=== PATIENT | female | born 1955 | race African-American/Black ===

== ENCOUNTER 2020-01-01 10:43 | Emergency (ER) | payer MEDICARE, OTHER ==
[~2020-01-01] VITALS: Ht 170.2 cm; Wt 92.4 kg
[2020-01-01 10:53] VITALS: BP 129/59
[2020-01-01] MEDS ORDERED: CYCLOBENZAPRINE 10 MG TABLET. PO ONE (11:15)
[2020-01-01] MEDS ORDERED: KETOROLAC 60 MG/2 ML VIAL. IM ONE (11:15)
--- NOTE | 2020-01-01 11:26 | PHYS DOC ---
Past Medical History Past Medical History: High Cholesterol, Hypertension (KELSEY RUIZ APRN) Past Surgical History: Other Additional Past Surgical Histo: BUNIONECTOMY,CYST/FINGER (KELSEY RUIZ APRN) Smoking Status: Current Every Day Smoker Additional Information: 0.25 PPD Alcohol Use: None (NORMANSHERRIESkylerKELSEY PICKERING) General Adult EDM: Chief Complaint: BACK PAIN - NO INJURY HPI: HPI: Patient is a 64 year old female who presents with low back pain since this past Wednesday after lifting heavy objects at work. Patient rates pain 10/10 pain on a 1-10 pain scale. Patient associates this pain with an old injury she suffered in 2005 from lifting a family member that requires total care at home. Patient states she has never had any imaging done of her back with this pain reporting she only takes [id number] pain medicine, stating this is her first time seeking care at an emergency department for this pain. 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 Patient denies any urinary tract infection signs and symptoms, patient denies any vaginal discharge, patient denies any STI concerns. Patient denies any fever, chills, changes in her vision, nasal congestion, cough or shortness of breath. Patient denies any chest pains, swelling of her extremities, abdominal pains, nausea, vomiting, diarrhea, or constipation. Patient denies any skin rashes, headaches, focal weaknesses, sensory changes, swelling of her glands, depressions or anxieties. Patient denies any homicidal or suicidal ideations. Patient denies any radiation of her back pain, patient states she took two 600 mg ibuprofens yesterday without relief of her pain. Patient describes her pain as a constant ache. Patient states her pain is on the left and right side of her lumbar spine area, denies midline spinal tenderness. (JOSEPHKELSEY PICKERING) Review of Systems: Review of Systems: Constitutional: Denies fever or chills. Eyes: Denies change in visual acuity. HENT: Denies nasal congestion or sore throat. Respiratory: Denies cough or shortness of breath. Cardiovascular: Denies chest pain or edema. GI: Denies abdominal pain, nausea, vomiting, constipation or diarrhea. : Denies dysuria. Denies vaginal discharge, denies STI concerns. Musculoskeletal: Complains of lower left and right sided back pains without radiation down lower extremities. Denies pains in other joints of her body. Integument: Denies rash. Neurologic: Denies headache, focal weakness or sensory changes. Endocrine: Denies polyuria or polydipsia. Lymphatic: Denies swollen glands. Psychiatric: Denies depression or anxiety. Denies HI/SI (KELSEY RUIZ APRN) Heart Score: Risk Factors: Risk Factors: DM, Current or recent (<one month) smoker, HTN, HLP, family history of CAD, obesity. Risk Scores: Score 0 - 3: 2.5% MACE over next 6 weeks - Discharge Home Score 4 - 6: 20.3% MACE over next 6 weeks - Admit for Clinical Observation Score 7 - 10: 72.7% MACE over next 6 weeks - Early Invasive Strategies (KELSEY RUIZ APRN) Family History: Family History: Patient denies any family history significant for this ER visit today. (KELSEY RUIZ APRN) Current Medications: Patient denies any current medications at home. (KELSEY RUIZ APRN) Allergies: Allergies: Allergies Coded Allergies Type Severity Reaction Last Updated Verified No Known Drug Allergies 01/01/20 No (KELSEY RUIZ APRN) Physical Exam: PE: Constitutional: Well developed, well nourished, no acute distress, non-toxic appearance. Patient is complaint of pain is significantly higher than physical presentation. HENT: Normocephalic, atraumatic, bilateral external ears normal, oropharynx moist, no oral exudates, nose normal. Eyes: PERRLA, EOMI, conjunctiva normal, no discharge. Neck: Normal range of motion, no tenderness, supple, no stridor. Cardiovascular:Heart rate regular rhythm, no murmur, heart sounds S1-S2 dilatation. Lungs & Thorax: Bilateral breath sounds clear to auscultation all lung alexander. Abdomen: Bowel sounds normal all 4 quadrants, soft, no tenderness, no masses, no pulsatile masses. Skin: Warm, dry, no erythema, no rash. Back: Tenderness to palpation left and right lumbar area, no mid line spinal tenderness, no radiation of pain, no deformity, no crepitus to palpation, no CVA tenderness. Extremities: No tenderness, no cyanosis, no clubbing, ROM intact, no edema. Neurologic: Alert and oriented X 3, normal motor function, normal sensory function, no focal deficits noted. Psychologic: Affect normal, judgement normal, mood normal. (KELSEY RUIZ APRN) Current Patient Data: Vital Signs: Vital Signs Date Time Temp Pulse Resp B/P (MAP) Pulse Ox O2 Delivery O2 Flow Rate FiO2 01/01/20 10:53 97.6 81 17 129/59 (82) 100 Room Air 97.6 (KELSEY RUIZ APRN) EKG: EKG: [] (KELSEY RUIZ APRN) Radiology/Procedures: Radiology/Procedures: PATIENT: CARLOS LAUGHLIN ACCOUNT: [id number] : 1955 LOCATION: ER AGE: 64 SEX: F EXAM STATUS: REG ER ORD. PHYSICIAN: KELSEY RUIZ APRN REASON: LOW BACK PAIN PROCEDURE: CT LUMBAR SPINE WO CONTRAST CT lumbar spine without contrast HISTORY: Low back pain. FINDINGS: Lumbar vertebral body height and alignment intact. No fracture. No spondylolysis defect. No pathologic lytic or sclerotic bone lesion evident. Aortoiliac calcified plaque. Paraspinal tissues unremarkable. Disc disease described below. L1-L2: Facet hypertrophy and spurring. Spinal canal and neural foramina grossly patent. L2-L3: Mild disc bulge. Facet hypertrophy and spurring. There may be mild neural foraminal stenoses. Spinal canal grossly patent. L3-L4: Mild disc bulge. Facet hypertrophy and spurring. Mild-moderate neural foraminal stenoses. Spinal canal grossly patent. L4-L5: Moderate disc bulge, bulky lateral disc osteophyte, facet hypertrophy and spurring. Mild left neural foraminal stenosis. Severe right neural foraminal stenosis or could be impingement of the exiting right L4 nerve. There is mild-moderate spinal canal stenosis. L5-S1: Moderate disc bulge, bulky lateral disc osteophyte, facet hypertrophy and spurring. Mild-moderate right neural foraminal stenosis. Mild left neural foraminal stenosis. There is probable mild spinal canal stenosis. IMPRESSION: No acute osseous injury lumbar spine. Lumbar disc disease and facet arthritis the spinal canal and neural foraminal stenoses most notable at L4-L5 and L5-S1 as described above. Exposure: One or more of the following individualized dose reduction techniques were utilized for this examination: 1. Automated exposure control 2. Adjustment of the mA and/or kV according to patient size 3. Use of iterative reconstruction technique Electronically signed by: Cory Romo MD (01/01/2020 11:50 AM) [id number] DICTATED and SIGNED BY: CORY ROMO MD DATE: 01/01/20 1150 (KELSEY RUIZ APRN) Course & Med Decision Making: Course & Med Decision Making Pertinent Labs and Imaging studies reviewed. (See chart for details) 64-year-old female patient vital signs stable presented to the emergency room with complaints of low back pain has been off and on since 2005, patient states she has never had any imaging nor ER visits related to her back pain. Patient states she does have a primary care physician that she sees regularly. A urinalysis was performed and negative, her urine is not infected. A CAT scan of her L-spine was performed concerning for disc disease. Patient was given 60 mg Toradol IM and 10 mg Flexeril p.o. for her 10/10 pain, which brought her pain down to a 2/10 on a 1-10 pain scale upon reexamination. Patient has no radiation of pain no signs or symptoms of saddle anesthesia, this is most likely pain related to her disc disease. Discussed CT findings with patient and need to follow-up with her primary care physician with possible referral to orthopedic specialty. Discussed with patient discharge instructions and home care, will write prescriptions for 600 mg ibuprofen, and 10 mg Flexeril. Patient is to follow-up with her primary care physician, patient denied need for a work excuse. Patient gave verbal understanding of home care instructions, follow-up instructions, return to ER concerns. Patient denies any further questions or concerns. Patient discharged to home without incident. (KELSEY RUIZ APRN) Course & Med Decision Making I have reviewed the PA/SENIOR CONSULTING MANAGER's note and Plan of Care. I was available for consultation as needed during the patient's visit in the emergency department. I agree with the clinical impression, plans and disposition. (ANDIE INMAN MD) Junaid Disclaimer: Junaid Disclaimer: This electronic medical record was generated, in whole or in part, using a voice recognition dictation system. (KELSEY RUIZ APRN) Departure Departure Impression: Primary Impression: Low back pain Qualified Codes: M54.5 - Low back pain; G89.29 - Other chronic pain Additional Impression: Lumbar strain Qualified Codes: S39.012A - Strain of muscle, fascia and tendon of lower back, initial encounter Disposition: 01 DC HOME SELF CARE/HOMELESS Condition: GOOD Referrals: JAMES BATES MD (PCP) Patient Instructions: Back Pain, Adult Additional Instructions: Take prescribed medications as directed, follow-up with your primary doctor soon related to your CAT scan for possible referral to soil specialist, return to the emergency department for worsening symptoms. Scripts Ibuprofen (IBUPROFEN) 600 Mg Tablet 600 MG PO PRN Q6HRS PRN for INFLAMMATION, #20 TAB Prov: KELSEY RUIZ APRN 01/01/20 Cyclobenzaprine Hcl (CYCLOBENZAPRINE HCL) 10 Mg Tablet 10 MG PO TID, #12 TAB 0 Refills Prov: KELSEY RUIZ APRN 01/01/20 KELSEY RUIZ APRN Jan 01, 2020 11:26 ANDIE INMAN MD Jan 01, 2020 14:23
--- NOTE | 2020-01-01 11:53 | RAD ---
CT lumbar spine without contrast HISTORY: Low back pain. FINDINGS: Lumbar vertebral body height and alignment intact. No fracture. No spondylolysis defect. No pathologic lytic or sclerotic bone lesion evident. Aortoiliac calcified plaque. Paraspinal tissues unremarkable. Disc disease described below. L1-L2: Facet hypertrophy and spurring. Spinal canal and neural foramina grossly patent. L2-L3: Mild disc bulge. Facet hypertrophy and spurring. There may be mild neural foraminal stenoses. Spinal canal grossly patent. L3-L4: Mild disc bulge. Facet hypertrophy and spurring. Mild-moderate neural foraminal stenoses. Spinal canal grossly patent. L4-L5: Moderate disc bulge, bulky lateral disc osteophyte, facet hypertrophy and spurring. Mild left neural foraminal stenosis. Severe right neural foraminal stenosis or could be impingement of the exiting right L4 nerve. There is mild-moderate spinal canal stenosis. L5-S1: Moderate disc bulge, bulky lateral disc osteophyte, facet hypertrophy and spurring. Mild-moderate right neural foraminal stenosis. Mild left neural foraminal stenosis. There is probable mild spinal canal stenosis. IMPRESSION: No acute osseous injury lumbar spine. Lumbar disc disease and facet arthritis the spinal canal and neural foraminal stenoses most notable at L4-L5 and L5-S1 as described above. Exposure: One or more of the following individualized dose reduction techniques were utilized for this examination: 1. Automated exposure control 2. Adjustment of the mA and/or kV according to patient size 3. Use of iterative reconstruction technique Electronically signed by: Kian Romo MD (01/01/2020 11:50 AM) [id number]
[2020-01-01 12:02] LABS: BILIRUBIN,URINE NEGATIVE (NEG); CLARITY,URINE CLEAR; COLOR,URINE YELLOW; NITRITE,URINE NEGATIVE (NEG); PH,URINE 7.5 (<5.0-8.0); PROTEIN,URINE NEGATIVE (NEG-TRACE)
[2020-01-01 12:15] LABS: BACTERIA,URINE FEW /HPF (0-FEW); RBC,URINE OCC /HPF (0-2); WBC,URINE OCC /HPF (0-4)
[2020-01-01] MEDS ORDERED: CYCL10TA2 PO (12:44)
[2020-01-01] MEDS ORDERED: IBUP-1007 PO (12:44)
== END 2020-01-01 12:49 | disposition home or self-care (01) ==
LOC: ER 10:43
DX: S39.012A Strain of muscle, fascia and tendon of lower back, initial encounter (principal); G89.29 Other chronic pain; E78.00 Pure hypercholesterolemia, unspecified; I10 Essential (primary) hypertension; F17.200 Nicotine dependence, unspecified, uncomplicated; M51.37 Other intervertebral disc degeneration, lumbosacral region; M48.061 Spinal stenosis, lumbar region without neurogenic claudication; X50.9XXA Other and unspecified overexertion or strenuous movements or postures, initial encounter; Y93.89 Activity, other specified; Y92.89 Other specified places as the place of occurrence of the external cause; Y99.8 Other external cause status
CPT/HCPCS: 72131; 81001; 96372; 99284; J1885

== ENCOUNTER → 2020-01-23 | Outpatient (CLI) | payer MEDICARE ==
[2020-01-01 10:53] VITALS: BP 129/59
[~2020-01-23] MED LIST: CYCL10TA2 PO; IBUP-1007 PO
--- NOTE | 2020-01-23 16:06 | RAD ---
LUMBAR SPINE WO CONTRAST History: Reason: SPINAL STENOSIS / Spl. Instructions: / History: Technique: Multiplanar, multi sequential MR imaging was performed of the lumbar spine. Comparison: CT January 01, 2020 Findings: Normal vertebral body height and alignment. No fracture. Left posterior L2 vertebral body hemangioma. Conus terminates at the normal location. No evidence of nerve root clumping. L1-L2: No canal or neuroforaminal narrowing. L2-L3: Small disc bulge. Mild facet arthropathy. No canal or neuroforaminal narrowing. L3-L4: Broad-based disc bulge. Moderate facet arthropathy. Mild subarticular recess narrowing. No canal narrowing. Superimposed right foraminal disc protrusion. Mild right neuroforaminal narrowing. No left neuroforaminal narrowing. L4-L5: Broad-based disc bulge. Moderate facet arthropathy. Mild subarticular recess narrowing. No canal narrowing. Right foraminal disc protrusion abutting the exiting right L4 nerve root. Mild to moderate right neuroforaminal narrowing. Correlate for radiculopathy. No left neuroforaminal narrowing. L5-S1: Broad-based disc bulge. Moderate facet arthropathy. Mild subarticular recess narrowing. No canal narrowing. No neuroforaminal narrowing. Impression: 1. Multilevel lumbar spondylosis most prominent L3-L4 and L4-5. 2. Neuroforaminal narrowing most prominent right and L4-5 and L3-L4. Electronically signed by: Bhavin Zarco DO (01/23/2020 4:03 PM) [facility]
== END ==
LOC: MRI 14:32
PROVIDERS: ATTEND Family Medicine
DX: M47.816 Spondylosis without myelopathy or radiculopathy, lumbar region (principal); M48.061 Spinal stenosis, lumbar region without neurogenic claudication
CPT/HCPCS: 72148

== ENCOUNTER → 2021-01-23 | Outpatient (CLI) | payer MEDICARE ==
[~2021-01-23] MED LIST changes: +AMLO-187 PO; +CYCL10TA19 PO; -CYCL10TA2 PO; +HYDR-2761 PO; +LISI-379 PO; +LOVA20TA2 PO
--- NOTE | 2021-01-23 15:08 | KCIC ---
MR LUMBAR SPINE WO -[id number] Date: 01/23/2021 9:55 AM Indication: CHRONIC LBP WITH RIGHT RADICULOPATHY. Chronic LBP with right radiculopathy. NKI. Comparison: 01/23/2020. Technique: Multi-planar multi-weighted magnetic resonance imaging of the lumbar spine was performed w ithout intravenous contrast using the standard lumbar spine protocol. FINDINGS: Straightening of the lumbar lordosis. No acute fracture. Moderate multilevel degenerative disc desicc ation and disc height loss. Trace degenerative endplate edema at L3-4. The conus terminates at a normal level. No abnormal signal is seen within the visualized distal spina l cord. No clumping of intrathecal nerve roots. No soft tissue abnormality in the visualized abdomen or pelvis. T12-L1: No disc bulge. No facet arthropathy. No significant spinal stenosis or neural foraminal narro wing. L1-L2: No disc bulge. No facet arthropathy. No significant spinal stenosis or neural foraminal narrow ing. L2-L3: Disc bulge. Mild facet arthropathy. No significant spinal stenosis or neural foraminal narrowi ng. L3-L4: Disc bulge. Moderate facet arthropathy. No significant spinal stenosis. Mild right neural fora fritz narrowing. L4-L5: Disc bulge with right foraminal protrusion. Moderate facet arthropathy. No significant spinal stenosis. Moderate right neural foraminal narrowing. Mild lateral recess narrowing. L5-S1: Disc bulge. Moderate facet arthropathy. No significant spinal stenosis. Mild right neural fora fritz narrowing. IMPRESSION: Mild to moderate lumbar spondylosis, similar to the prior exam. Electronically signed by: Arnel Acosta MD (01/23/2021 3:06 PM) [facility]
== END ==
LOC: KCIC MRI 09:18
PROVIDERS: ATTEND Family Medicine
DX: M47.27 Other spondylosis with radiculopathy, lumbosacral region (principal); M51.17 Intervertebral disc disorders with radiculopathy, lumbosacral region; M48.07 Spinal stenosis, lumbosacral region
CPT/HCPCS: 72148